=== PATIENT | female | born 1940 | race Caucasian/White ===

== ENCOUNTER 2019-06-07 07:43 | Day surgery (SDC) | payer OTHER ==
[2019-06-06 11:06] VITALS: BMI 23.1
[2019-06-07 09:58] VITALS: TEMP 97.6
[2019-06-07 11:02] VITALS: BP 109/57; PULSE 75
--- NOTE | 2019-06-08 15:40 | PATH ---
Surgical Pathology Report Patient Name: BECCA MACKEY [facility] Rec. #: [id number] /Age/Gender: 1940 (Age: 79) / F Account: [id number] Location: U-ENDOSCOPY Taken: 06/07/2019 Received: 06/07/2019 Reported: 06/08/2019 Physicians: Court Tidwell M.D. Specimen(s) Received A: DUODENUM B: STOMACH C: SIGMOID POLYP D: CECAL POLYP#1 E: CECAL POLYP #2 Clinical History Anemia Postoperative diagnosis: Esophagitis, gastritis, colon polyps, diverticulosis, gastric diverticulum Final Diagnosis A. DUODENUM, BIOPSY: DUODENAL MUCOSA WITHOUT SIGNIFICANT PATHOLOGIC FINDINGS. B. STOMACH, BIOPSY: GASTRIC BODY MUCOSA WITH MILD CHRONIC GASTRITIS. IMMUNOHISTOCHEMICAL STAIN FOR H. PYLORI IS NEGATIVE. C. SIGMOID COLON, POLYP, POLYPECTOMY: TRADITIONAL SERRATED ADENOMA. D. CECAL POLYP #1, BIOPSY: SESSILE SERRATED POLYP. E. CECAL POLYP #2, POLYPECTOMY: SESSILE SERRATED POLYP. Positive and negative controls (internal if applicable) show appropriate results. Electronically Signed Lexii Castellanos M.D. Gross Description A. Received in formalin, labeled "duodenum biopsy" are 5 alvarez, irregular portions of soft tissue ranging from 0.2-0.4 cm. in greatest dimension. The specimens are submitted in toto in one cassette. B. Received in formalin, labeled "stomach biopsy" are 4 alvarez, irregular portions of soft tissue ranging from 0.2-0.4 cm. in greatest dimension. The specimens are submitted in toto in one cassette. C. Received in formalin labeled "sigmoid polyp," is a 0.8 x 0.8 x 0.5 cm alvarez, polypoid portion of soft tissue. The specimen is bisected and entirely submitted in one cassette. D. Received in formalin, labeled "cecal polyp biopsy #1" is a alvarez, irregular portion of soft tissue measuring 0.3 cm. in greatest dimension. The specimen is submitted in toto in one cassette. E. Received in formalin labeled " cecal polyp #2," is a 0.8 x 0.6 x 0.4 cm alvarez, polypoid portion of soft tissue. The specimen is bisected and entirely submitted in one cassette. /06/07/201906/07/2019
== END 2019-06-07 11:07 | disposition home or self-care (01) ==
LOC: JASU-ENDO 07:43
PROVIDERS: ATTEND Internal Medicine Gastroenterology
PROC: 0DBN8ZX Excision of Sigmoid Colon, Via Natural or Artificial Opening Endoscopic, Diagnostic (ICD-10-PCS; 2019-06-07)
PROC: 0DBH8ZX Excision of Cecum, Via Natural or Artificial Opening Endoscopic, Diagnostic (ICD-10-PCS; principal; 2019-06-07 08:30)
DX: D64.9 Anemia, unspecified (principal); D12.0 Benign neoplasm of cecum; D12.5 Benign neoplasm of sigmoid colon; K57.30 Diverticulosis of large intestine without perforation or abscess without bleeding; K64.8 Other hemorrhoids